=== PATIENT | male | born 1970 | race Caucasian/White ===

== ENCOUNTER 2024-10-28 06:37 | Emergency (ER) | payer OTHER, SELFPAY ==
[2024-10-28 06:44] VITALS: BP 192/88; PULSE 88; TEMP 36.9; O2SAT 98; BMI 20.7
--- NOTE | 2024-10-28 07:12 | XR_ITS ---
The [address] [address] Patient Name: KYM OWUSU MRN: [id number] date: 1970 Sex: M Assigned Patient Location: ER Current Patient Location: ED.MAIN Accession/Order Number: [id number] Exam Date: 10/28/2024 09:06 Report Date: 10/28/2024 09:11 At the request of: BUBBA GARCIA MD Procedure: XR ribs LT min 3V w CXR1V Left Rib series with Single View Chest HISTORY: Posterior left rib pain after fall. COMPARISON: None MEDIASTINUM: Cardiac, mediastinal hilar silhouettes are within normal limits. LUNGS AND PLEURA: Right apical pleural-parenchymal changes. Right apical bullous changes. ACUTE FINDINGS: Left posterior eighth and ninth rib fractures. DEGENERATIVE CHANGE: Unremarkable SOFT TISSUE: Unremarkable POSTOP CHANGES: None XR/XR ribs LT min 3V w CXR1V IMPRESSION: Left eighth and ninth rib fractures likely right apical pleural-parenchymal scarring and bullous changes. May consider short-term follow-up assessment CT of chest. Impression dictated by: Garland Sim M.D. 10/28/2024 9:11 AM Dictation Location: [place] [address] Electronically authenticated by: [id number] Y Date: 10/28/2024 09:11
--- NOTE | 2024-10-28 07:12 | ED.GENADUL1 ---
HPI HPI - General Adult General Chief complaint: Back Pain/Injury Stated complaint: rib pain Time Seen by Provider: 10/28/24 07:06 Source: patient Mode of arrival: walk-in History of Present Illness HPI narrative: 54-year-old male presents to the emergency department for rib pain. He fell a day and a half ago and hit his left posterior lateral rib region. The pain is sharp and severe. No other injury was sustained, he did not hit his head. No abdominal pain. Related Data Previous Rx's �Medication �Instructions �Recorded hydrocodone 5 mg-acetaminophen 325 1 tab PO Q6H PRN pain 5 days #20 10/28/24 mg tablet tabs Allergies Allergy/AdvReac Type Severity Reaction Status Date / Time No Known Drug Allergies Allergy Verified 10/28/24 06:42 Review of Systems ROS Narrative A ten point review of systems is negative except as noted above. PFSH PFSH Social History Little interest or pleasure in doing things: not at all Feeling down, depressed, or hopeless: not at all Exam Narrative Exam Narrative: Nurses note and vital signs reviewed and patient is not hypoxic. General: The patient appears well and in no apparent distress. Patient is resting comfortably on cart. Skin: Warm, dry, no pallor noted. There is no rash noted. Head: Normocephalic, atraumatic Eye: Normal conjunctiva, no drainage Ears, Nose, Mouth, and Throat: oral mucosa is moist. Nares patent. Cardiovascular: Regular Rate and Rhythm Respiratory: Breath sounds are equal Back: No crepitus bruise or abrasion. He has tenderness on the left posterior lateral region. GI: Soft and nontender Musculoskeletal: The patient has no evidence of calf tenderness, no pitting edema, symmetrical pulses noted bilaterally Neurological: A&O, normal speech Psychiatric: Cooperative Constitutional Vital Signs, click to edit/add: Last Vital Signs Temp 98.4 F 10/28/24 06:44 Pulse 88 10/28/24 06:44 Resp 20 10/28/24 06:44 BP 192/88 H 10/28/24 06:44 Pulse Ox 98 10/28/24 06:44 O2 Del Method Room Air 10/28/24 06:44 Course Vital Signs Vital signs: Vital Signs Temperature 98.4 F 10/28/24 06:44 Pulse Rate 88 10/28/24 06:44 Respiratory Rate 20 10/28/24 06:44 Blood Pressure 192/88 H 10/28/24 06:44 Pulse Oximetry 98 10/28/24 06:44 Oxygen Delivery Method Room Air 10/28/24 06:44 Temperature 98.4 F 10/28/24 06:44 Pulse Rate 88 10/28/24 06:44 Respiratory Rate 20 10/28/24 06:44 Blood Pressure 192/88 H 10/28/24 06:44 Pulse Oximetry 98 10/28/24 06:44 Oxygen Delivery Method Room Air 10/28/24 06:44 Medical Decision Making MDM Narrative Medical decision making narrative: Rib x-rays on my interpretation show fractures of 8th and 9th ribs. No pneumothorax. He was given OPEP device as well as prescription for [place]. Treatment diagnosis and follow-up were discussed with the patient. Differential Diagnosis Differential Diagnosis: Rib fracture, contusion, pneumothorax Imaging Data Rib x-rays: My impression: 8th and 9th rib fractures, no pneumothorax Discharge Plan Discharge Chief Complaint: Back Pain/Injury Clinical Impression: Fracture, ribs Patient Disposition: Home, Self-Care Time of Disposition Decision: 08:56 Condition: Good Mode of Transportation: Private Vehicle Prescriptions / Home Meds: New hydrocodone-acetaminophen 5-325 mg tablet 1 tab PO Q6H PRN (Reason: pain) 5 Days Qty: 20 0RF Print Language: Sudanese Instructions: Rib Fracture (ED) Additional Instructions: See your doctor in 1 week for recheck. Referrals: Physician,Non-Staff, MD [Primary Care Provider] - 1 week
== END 2024-10-28 09:31 | disposition home or self-care (01) ==
PROVIDERS: Emergency Provider Emergency Medicine
DX: S22.42XA Multiple fractures of ribs, left side, initial encounter for closed fracture (principal); W19.XXXA Unspecified fall, initial encounter
CPT/HCPCS: 71101; 94667; 99284

== ENCOUNTER 2024-10-29 02:58 | Emergency (ER) | payer OTHER, SELFPAY ==
[2024-10-29 02:59] VITALS: BP 174/81; PULSE 89; TEMP 36.5; O2SAT 91; BMI 20.7
--- NOTE | 2024-10-29 03:10 | ED.GENADUL1 ---
HPI HPI - General Adult General Chief complaint: Fall Stated complaint: FALL, FLANK PAIN Time Seen by Provider: 10/29/24 03:10 Source: patient Mode of arrival: ambulance Limitations: no limitations History of Present Illness HPI narrative: patient was seen here 1 day ago after falling and fracturing left 2 ribs. Now returns complaining of pain of his chest due to the rib fractures. Feels short of breath. No fever daily cigarette smoker. Has smokers cough. States not smoking now because of his rib fractures. no fever or nausea. no abdominal pain Related Data Previous Rx's ?Medication ?Instructions ?Recorded hydrocodone 5 mg-acetaminophen 325 1 tab PO Q6H PRN pain 5 days #20 10/28/24 mg tablet tabs Allergies Allergy/AdvReac Type Severity Reaction Status Date / Time No Known Drug Allergies Allergy Verified 10/29/24 03:04 Opioid HPI Opioid Management Most Recent Opioid Data: Last Pain Scale 10 Today, 04:52 Last MAR Pain Assessment Today, 03:24 Review of Systems ROS Status of ROS 10 or more systems reviewed and unremarkable except as noted in history and below PFSH PFSH Social History Little interest or pleasure in doing things: not at all Feeling down, depressed, or hopeless: not at all Exam Constitutional Vital Signs, click to edit/add: Last Vital Signs Temp 97.7 F 10/29/24 02:59 Pulse 93 H 10/29/24 04:07 Resp 20 10/29/24 04:07 BP 135/73 10/29/24 04:07 Pulse Ox 93 L 10/29/24 04:07 O2 Del Method Nasal Cannula 10/29/24 04:07 O2 Flow Rate 3 10/29/24 04:07 Common normals: average body habitus, oriented x3, no limitations, alert and well nourished General appearance: in distress (mild) HENMT Common normals: normocephalic and head/scalp atraumatic Chest Other: left chest wall tenderness.No crepitus Respiratory Common normals: normal respiratory effort, no retractions, no use of accessory muscles and clear to auscultation bilaterally Cardio Common normals: regular rate, regular rhythm, S1 normal heart sound and S2 normal heart sound GI Common normals: Normal to inspection, nondistended, normoactive bowel sounds present, soft to palpation and non-tender Extremity Common normals: normal to inspection and full ROM Neuro Common normals: oriented x3, CN's II-XII intact bilaterally, moves all extremities and no focal motor deficits Psych Appearance: grossly normal Course Vital Signs Vital signs: Vital Signs Temperature 97.7 F 10/29/24 02:59 Pulse Rate 89 10/29/24 02:59 Respiratory Rate 20 10/29/24 02:59 Blood Pressure 174/81 H 10/29/24 02:59 Pulse Oximetry 91 L 10/29/24 02:59 Oxygen Delivery Method Room Air 10/29/24 02:59 Temperature 97.7 F 10/29/24 02:59 Pulse Rate 93 H 10/29/24 04:07 Respiratory Rate 20 10/29/24 04:07 Blood Pressure 135/73 10/29/24 04:07 Pulse Oximetry 93 L 10/29/24 04:07 Oxygen Delivery Method Nasal Cannula 10/29/24 04:07 Oxygen Delivery Flow Rate 3 10/29/24 04:07 Medical Decision Making MDM Narrative Medical decision making narrative: patient presents with pain due to recent rib fractures. Prescribed [place] but states it is not helping his pain. He is short of breath and coughing because of his underlying COPD. Exam with focal tenderness left rib cage. No crepitus. No fever. Repeat xrays per my preliminary review confirms rib fractures on the left x 2. No pneumothorax or obvious infiltrate. Does have some scarring in his lungs and findings of emphysema. Treated with Duoneb and solumedrol and is now breathing better. Discharged with prednisone, albuterol inhaler and percocet for pain. Advised to follow up with his PCP in the next couple to 3 days Lab Data Labs: Lab Results 10/29/24 Range/Units 03:05 WBC 11.1 H (4.0-11.0) 10^3/uL RBC 4.44 L (4.70-6.10) 10^6/uL Hgb 14.6 (14.0-18.0) g/dL Hct 42.6 (42.0-54.0) % MCV 95.9 H (80.0-94.0) fL MCH 32.9 (25.9-34.0) pg MCHC 34.3 (29.9-35.2) g/dL RDW 13.3 (11.0-15.0) % Plt Count 211 (150-450) 10^3/uL MPV 9.5 (9.5-13.5) fL Neut % (Auto) 71.9 (43.0-75.0) % Lymph % (Auto) 17.5 L (20.5-60.0) % [place] % (Auto) 8.9 (1.7-12.0) % Eos % (Auto) 0.9 (0.9-7.0) % Baso % (Auto) 0.4 (0.2-2.0) % Neut # (Auto) 8.0 H (1.4-6.5) 10^3/uL Lymph # (Auto) 1.9 (1.2-3.8) 10^3/uL [place] # (Auto) 1.0 H (0.3-0.8) 10^3/uL Eos # (Auto) 0.1 (0.0-0.7) 10^3/uL Baso # (Auto) 0.0 (0.0-0.1) 10^3/uL Abs Immat Gran (auto) 0.04 H (0.00-0.03) 10^3/uL Imm/Tot Granulo (auto) 0.4 (0.0-0.5) % Sodium 142 (136-145) mmol/L Potassium 4.7 (3.5-5.1) mmol/L Chloride 106 (98-107) mmol/L Carbon Dioxide 30.2 (21.0-32.0) mmol/L Anion Gap 10.5 BUN 22.0 H (7.0-18.0) mg/dL Creatinine 1.20 (0.70-1.30) mg/dL Est GFR ( Amer) >60 (>=60 mL/min/1.73m^2) Est GFR (Non-Af Amer) >60 (>=60 mL/min/1.73m^2) BUN/Creatinine Ratio 18.3 Glucose 125 H (74-106) mg/dL Calcium 9.7 (8.5-10.1) mg/dL Troponin I High Sens 5.0 (4.0-76.1) pg/mL Discharge Plan Discharge Chief Complaint: Fall Clinical Impression: Fracture, ribs Patient Disposition: Home, Self-Care Prescriptions / Home Meds: No Action hydrocodone-acetaminophen 5-325 mg tablet 1 tab PO Q6H PRN (Reason: pain) 5 Days Qty: 20 0RF Print Language: Setswana Instructions: Rib Fracture (ED) Additional Instructions: stop smoking. follow up with your doctor for recheck in the next 2-3 days Referrals: Physician,Non-Staff, MD [Primary Care Provider] - 1 week
--- NOTE | 2024-10-29 03:13 | XR_ITS ---
The [address] [address] Patient Name: KYM OWUSU MRN: [id number] date: 1970 Sex: M Assigned Patient Location: ER Current Patient Location: ED.MAIN Accession/Order Number: [id number] Exam Date: 10/29/2024 06:37 Report Date: 10/29/2024 06:40 At the request of: DOT FERNANDEZ MD Procedure: XR ribs LT min 3V w CXR1V XR ribs LT min 3V w CXR1V 10/29/2024 4:36 AM SIGNS AND SYMPTOMS: ^rib pain PROTOCOL: Frontal radiograph of the chest with oblique radiographs of the right ribs COMPARISON: 10/28/2024 FINDINGS: The trachea is midline. The heart and mediastinal structures are within normal limits. Interstitial prominence and emphysematous changes are noted similar to the prior exam with linear scarring in the right upper chest. There is a calcified granuloma in the right mid chest which is unchanged. There are mildly displaced fractures of the lateral aspect of the right ninth and 10th ribs. XR/XR ribs LT min 3V w CXR1V IMPRESSION: There are mildly displaced fractures of the lateral aspect of the right ninth and 10th ribs. Impression dictated by: Watson Contreras M.D. 10/29/2024 6:40 AM Dictation Location: [place] [address] Electronically authenticated by: [id number] Y Date: 10/29/2024 06:40
[2024-10-29 03:17] VITALS: O2SAT 90
[2024-10-29 03:17] LABS: Hematocrit 42.6 % (42.0-54.0); Hemoglobin 14.6 g/dL (14.0-18.0); Immature Granulocytes Abs Auto 0.04 10^3/uL (0.00-0.03); Immature Granulocytes Pct Auto 0.4 % (0.0-0.5); Lymphocytes Absolute Auto 1.9 10^3/uL (1.2-3.8); Mean Corpuscular HGB Conc 34.3 g/dL (29.9-35.2); Mean Corpuscular Hemoglobin 32.9 pg (25.9-34.0); Mean Corpuscular Volume 95.9 fL (80.0-94.0); Platelet Count 211 10^3/uL (150-450); Red Blood Count 4.44 10^6/uL (4.70-6.10); White Blood Count 11.1 10^3/uL (4.0-11.0)
[2024-10-29] MEDS: FENTANYL CITRATE/PF 100 MCG/2 ML VIAL IV ×2 (03:24→04:52)
[2024-10-29] MEDS: METHYLPREDNISOLONE SOD SUCC PF 125 MG/2 ML VIAL IVP (03:25)
[2024-10-29 03:26] VITALS: PULSE 74; O2SAT 96
[2024-10-29] MEDS: IPRATROPIUM/ALBUTEROL SULFATE 3 ML AMPUL.NEB IH (03:26)
[2024-10-29 03:34] VITALS: O2SAT 95
--- NOTE | 2024-10-29 03:35 | PC.NURSE ---
Coarse throughout. Moist smokers cough noted.
[2024-10-29 03:36] LABS: Anion Gap 10.5; Blood Urea Nitrogen 22.0 mg/dL (7.0-18.0); Calcium 9.7 mg/dL (8.5-10.1); Carbon Dioxide 30.2 mmol/L (21.0-32.0); Chloride 106 mmol/L (98-107); Estimated GFR (African America >60 (>=60 mL/min/1.73m^2); Estimated GFR (Non-African Ame >60 (>=60 mL/min/1.73m^2); Glucose 125 mg/dL (74-106); Potassium 4.7 mmol/L (3.5-5.1); Sodium 142 mmol/L (136-145)
[2024-10-29 04:07] VITALS: BP 135/73; PULSE 93; O2SAT 93
[2024-10-29] MEDS: ALBUTEROL SULFATE 200 PUFF/6.7 GM INHALER IH (06:48)
== END 2024-10-29 06:58 | disposition home or self-care (01) ==
PROVIDERS: Emergency Provider Internal Medicine
DX: S22.41XA Multiple fractures of ribs, right side, initial encounter for closed fracture (principal); X58.XXXA Exposure to other specified factors, initial encounter; F17.200 Nicotine dependence, unspecified, uncomplicated; J44.9 Chronic obstructive pulmonary disease, unspecified
CPT/HCPCS: 36415; 71101; 80048; 84484; 85025; 94640; 96374; 96375; 96376; 99284; J2919; J3010